=== PATIENT | female | born 1970 | race Caucasian/White ===

== ENCOUNTER 2016-06-02 17:25 | Emergency (ER) | payer OTHER ==
[~2016-06-02] VITALS: Ht 157.5 cm; Wt 105.6 kg
[~2016-06-02 17:25] MED LIST: ALBUTEROL SULF8.5 GM IH; CELEXA20 MG PO; HYDROCODON-ACE1 EAC7 PO; MONOPRIL HCT PO; MOTRIN400 MG PO; PARAFON FORTE500 MG PO; PROVENTIL,2.5 MG/3 M IH; VENTOLIN HFA18 GM IH
[2016-06-02 17:45] VITALS: BP 143/101
[2016-06-02] MEDS ORDERED: BREO ELLIPTA I1 EACH IH (18:28)
[2016-06-02] MEDS ORDERED: AUGMENTIN875 MG PO (18:56)
[2016-06-02 19:02] LABS: EOSINOPHIL (%) 2.8 % (0-5); EOSINOPHIL COUNT 0.2 K/uL (0-0.3); HEMATOCRIT 42.4 % (36.0-46.0); IMMATURE GRANULOCYTE (%) 0.2 % (0.0-0.7); IMMATURE GRANULOCYTE COUNT 0.2 K/uL; LYMPHOCYTE COUNT 3.5 K/uL (1.0-2.8); MCH 29.9 PG (29.0-34.0); MCHC 34.4 G/DL (30.0-36.0); MCV 86.9 FL (83-99); MEAN PLAT.VOLUME 10.1 uM^3 (9.5-12.4); MONOCYTE (%) 7.6 % (3-12); MONOCYTE COUNT 0.6 K/uL (0-0.8); NEUTROPHIL (%) 47.1 % (45-76); NEUTROPHIL COUNT 3.9 K/uL (1.8-6.4); PLATELET COUNT 241 K/uL (156-360); RBC DIS.WIDTH-SD 40.4 % (39-53); RED BLOOD COUNT 4.88 M/uL (3.80-5.20); WHITE BLOOD COUNT 8.3 K/uL (4.1-10.2)
[2016-06-02 19:13] LABS: CHLORIDE 105 mEq/L (99-109); POTASSIUM 3.6 mEq/L (3.7-5.4); SODIUM 137 mEq/L (136-147)
[2016-06-02 19:16] LABS: GLUCOSE 88 mg/dL (70-99)
[2016-06-02 19:17] LABS: ANION GAP 12 MEQ/L (2-14); TOTAL BILIRUBIN 0.6 mg/dL (0.0-1.0)
[2016-06-02 19:19] LABS: ALKALINE PHOSPHATASE 85 IU/L (3-129); GFR ESTIMATE (CALCULATED) > 59 mL/min/
[2016-06-02 19:20] LABS: UREA NITROGEN (BUN) 15 mg/dL (9-23)
[2016-06-02 19:21] LABS: DIRECT BILIRUBIN 0.2 mg/dL (0.0-0.3)
[2016-06-02 19:31] LABS: QUANTITATIVE HCG 4.6 MIU/ML
== END 2016-06-02 19:11 | disposition home or self-care (01) ==
LOC: EME 17:25
PROVIDERS: Physician Assistant
DX: S51.832A Puncture wound without foreign body of left forearm, initial encounter (principal); Y04.1XXA Assault by human bite, initial encounter; Y99.0 Civilian activity done for income or pay; Y92.238 Other place in hospital as the place of occurrence of the external cause
CPT/HCPCS: 80048; 80076; 84702; 85025; 86703; 86706; 86803; 99281; 99283

== ENCOUNTER 2016-11-04 06:39 | Day surgery (SDC) | payer BC ==
[~2016-11-04] VITALS: Ht 157.5 cm; Wt 123.4 kg
[~2016-11-04 06:39] MED LIST changes: +AUGMENTIN875 MG PO; +BREO ELLIPTA I1 EACH IH; +RITALIN10 MG PO
[2016-11-04 07:30] VITALS: BP 118/75
[2016-11-04 12:00] VITALS: BP 112/67
[2016-11-04 12:50] VITALS: BP 112/68
[2016-11-04 13:50] VITALS: BP 93/63
[2016-11-04 14:29] VITALS: BP 105/56
[2016-11-04 15:13] VITALS: BP 111/68
== END 2016-11-04 15:15 | disposition home or self-care (01) ==
LOC: SDC 06:39
PROC: 0DP64CZ Removal of Extraluminal Device from Stomach, Percutaneous Endoscopic Approach (ICD-10-PCS; principal; 2016-11-04)
DX: K95.09 Other complications of gastric band procedure (principal); I10 Essential (primary) hypertension; J45.909 Unspecified asthma, uncomplicated; K21.9 Gastro-esophageal reflux disease without esophagitis; F41.1 Generalized anxiety disorder; Z68.41 Body mass index [BMI] 40.0-44.9, adult; E66.9 Obesity, unspecified; Z87.891 Personal history of nicotine dependence; Z82.61 Family history of arthritis; Z82.49 Family history of ischemic heart disease and other diseases of the circulatory system; Z82.0 Family history of epilepsy and other diseases of the nervous system; Z83.71 Family history of colonic polyps
CPT/HCPCS: J0330; J0690; J1644; J2001; J2795; J3010; J3475; Q0175; S0020

== ENCOUNTER 2017-08-23 15:58 | Emergency (ER) | payer BC ==
[~2017-08-23] VITALS: Ht 157.5 cm; Wt 85.6 kg
[2017-08-23 17:12] LABS: HEMOGLOBIN 14.8 G/DL (11.9-15.5); MCHC 34.4 G/DL (30.0-36.0); MCV 87.2 FL (83-99); PLATELET COUNT 229 K/uL (156-360); RBC DIS.WIDTH-CV 12.9 % (11.8-14.6); RBC DIS.WIDTH-SD 40.6 % (39-53); RED BLOOD COUNT 4.93 M/uL (3.80-5.20)
[2017-08-23 17:20] LABS: ALBUMIN 4.4 g/dL (3.2-4.8); CHLORIDE 105 mEq/L (99-109); POTASSIUM 4.2 mEq/L (3.7-5.4); SODIUM 142 mEq/L (136-147)
[2017-08-23 17:21] LABS: AMYLASE 74 IU/L (1-118)
[2017-08-23 17:22] LABS: GLUCOSE 87 mg/dL (70-99)
[2017-08-23 17:22] LABS: APPEARANCE CLEAR ((CLEAR)); BILIRUBIN NEGATIVE; BLOOD NEGATIVE; COLOR STRAW ((YELLOW)); GLUCOSE (STRIP) NEGATIVE; KETONES NEGATIVE; LEUKOCYTES SMALL; NITRITE NEGATIVE; PROTEIN (STRIP) NEGATIVE; SPECIFIC GRAVITY 1.006 (1.000-1.030); UROBILINOGEN 0.2 MG/DL (0.2-1.0)
[2017-08-23 17:23] LABS: TOTAL PROTEIN 7.6 g/dL (6.4-8.3)
[2017-08-23 17:24] LABS: TOTAL BILIRUBIN 0.8 mg/dL (0.0-1.0)
[2017-08-23 17:26] LABS: ALKALINE PHOSPHATASE 101 IU/L (3-129); CREATININE 0.8 mg/dL (0.6-1.3); GFR ESTIMATE (CALCULATED) > 59 mL/min/
[2017-08-23 17:27] LABS: UREA NITROGEN (BUN) 17 mg/dL (9-23)
[2017-08-23 17:28] LABS: AST (GOT) 19 IU/L (2-34)
[2017-08-23 17:29] LABS: ALT (GPT) 20 IU/L (3-49)
[2017-08-23 17:30] LABS: LIPASE 45 U/L (1.0-51.0)
[2017-08-23 17:36] LABS: BACTERIA RARE /HPF; EPITHELIAL CELLS RARE /HPF; MUCUS TRACE /LPF; RED BLOOD CELLS 0-5 /HPF (0-5); UCUL ADDED? NO; WHITE BLOOD CELLS 0-5 /HPF (0-5)
[2017-08-23 18:31] VITALS: BP 124/78
== END 2017-08-23 18:32 | disposition home or self-care (01) ==
LOC: EME 15:58
PROVIDERS: Physician Assistant
DX: R10.11 Right upper quadrant pain (principal); J45.909 Unspecified asthma, uncomplicated; F41.9 Anxiety disorder, unspecified; Z87.891 Personal history of nicotine dependence; Z98.84 Bariatric surgery status; Z90.711 Acquired absence of uterus with remaining cervical stump; Z88.5 Allergy status to narcotic agent; Z88.8 Allergy status to other drugs, medicaments and biological substances
CPT/HCPCS: 71046; 76705; 80053; 81003; 82150; 83690; 85027; 99281; 99284